=== PATIENT | female | born 1970 | race American Indian/Alaskan Native ===

== ENCOUNTER 2016-08-09 19:31 | Emergency (ER) | payer SELFPAY ==
[2016-08-10] MEDS ORDERED: MOTRIN PO ONE (00:48)
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
[2016-08-10 01:00] LABS: Urine Drugs of Abuse Note Disclamer
[2016-08-10 02:15] VITALS: BP 129/78
== END 2016-08-10 02:16 | disposition home or self-care (01) ==
LOC: ED 19:31
DX: M19.90 Unspecified osteoarthritis, unspecified site (principal); M62.838 Other muscle spasm; F17.200 Nicotine dependence, unspecified, uncomplicated; Z88.5 Allergy status to narcotic agent; Z88.6 Allergy status to analgesic agent
CPT/HCPCS: 80307; 81025; 93005; 93010; 96372; 99283; J2920